=== PATIENT | male | born 1985 | race Caucasian/White ===

== ENCOUNTER 2020-12-30 13:49 | Emergency (ER) | payer OTHER ==
[2020-12-30 14:47] LABS: BASOPHIL 0.3 % (0-2); EOSINOPHIL 0.2 % (0-5); HGB 15.3 g/dl (13.2-18.0); LYMPHOCYTE 25.2 % (15-48); MCH 29.9 pg (25.0-31.0); MCHC 34.8 g/dL (32.0-36.0); MCV 85.9 fL (78.0-100.0); MONOCYTE 9.3 % (0-12); MPV 10.6 fL (6.0-9.5); NEUTROPHIL 64.4 % (41-80); NRBC 0; PLT 173 K/uL (150-400); RBC 5.12 M/uL (4.70-6.00); RDW 11.9 % (11.5-14.0); WBC 6.2 K/uL (4.0-10.5)
[2020-12-30 15:08] LABS: ALBUMIN 3.7 g/dL (3.4-5.0); BILIRUBIN - TOTAL 0.7 mg/dL (0.2-1.0); BUN/CREAT RATIO (CALC) 13.8 RATIO; CREATININE 0.87 mg/dL (0.67-1.17); POTASSIUM 3.5 mmol/L (3.5-5.1); TOTAL PROTEIN 7.7 g/dL (6.4-8.2)
== END 2020-12-30 20:00 | disposition home or self-care (01) ==
LOC: FER 13:49
PROVIDERS: Emergency Medicine
DX: U07.1 COVID-19 (principal); J12.82 Pneumonia due to coronavirus disease 2019; R94.5 Abnormal results of liver function studies; R00.0 Tachycardia, unspecified; R41.0 Disorientation, unspecified; I10 Essential (primary) hypertension; J45.909 Unspecified asthma, uncomplicated; E66.9 Obesity, unspecified
CPT/HCPCS: 36415; 36600; 71045; 80053; 82803; 85025; 93005; J7050; M0239